=== PATIENT | female | born 1945 | race Caucasian/White ===

== ENCOUNTER 2018-07-04 09:19 | Day surgery (SDC) | payer OTHER, MEDICARE ==
--- NOTE | 2018-06-26 14:32 | RAD REPORT ---
EXAM DESCRIPTION: RAD - Chest Pa And Lat (2 Views) - 06/26/2018 2:25 pm CLINICAL HISTORY: preop Chest pain. COMPARISON: Chest Single View dated 04/11/2017; Chest Single View dated 04/10/2017; Chest Single View [place] 04/09/2017; Chest Single View dated 04/08/2017 FINDINGS: The lungs are clear. The heart is moderately enlarged in size. No displaced fractures. Nargis dging thoracic osteophytes. IMPRESSION: Moderate cardiomegaly.
[2018-06-26 14:37] LABS: Absolute Lymphocytes (CBC) 2.1 K/uL (0.7-4.9); Absolute Monocytes 0.9 K/uL (0.1-1.3); Absolute Neutrophil 10.5 K/uL (1.8-8.0); Basophils % 0.6 % (0-1.3); Eosinophils % 0.8 % (0-4.4); Hematocrit 49.2 % (36.0-45.0); Lymphocytes % 15.3 % (15.3-44.8); MPV 9.8 fL (7.6-11.3); Monocytes % 6.3 % (3.3-12.3); RBC Red Blood Cell Count 5.43 M/uL (3.86-4.86)
[2018-06-26 14:45] LABS: Potassium 3.8 mmol/L (3.5-5.1)
--- NOTE | 2018-06-26 14:57 | EKG ---
Test Date: 2018-06-26 Test Time: 13:54:04 [employer] Operator: DAGO MEASUREMENT RESULTS: Intervals: Rate: 102 IL: 174 QRSD: 98 QT: 382 QTc: 497 [place]: P: 57 [place]: 174 QRS: 78 T: 81 INTERPRETIVE STATEMENTS: Sinus tachycardia Possible Left atrial enlargement Borderline ECG Compared to ECG 10/05/1998 09:50:00 Sinus rhythm no longer present Electronically Signed On 06-26-18 14:56:37 CDT by Roshan Ha
--- OUTSIDE RECORDS SUMMARY | 2018-07-04 09:31 | XMS REPORT | Continuity of Care Document ---
:1945 Author Organization Interface Problems Problem Status Onset Classification Date Comments Source Date Reported AUTOPED Active 01/15/[address] HEAD LACERATION Active 01/15/[address] Diabetes Resolved Problem 01/19/2016 [facility] Hypertension Resolved Problem 01/19/2016 [facility] UNSPECIFIED OPEN Active [facility] WOUND OF OTHER Medical PART OF [place] Medications Medication Details Route Status Patient Ordering Order Source Instructions Provider Date ibuprofen 800 mg 800 mg=1 tab, Active 01/15[facility] [place] oral tablet PO, TID, PRN 2016 Medical Pain 1-3/Temp > Center 100.4 F, not to exceed 3200 mg/day with food or milk, X 7 day, # 21 tab, 0 Refill(s) tramadol 50 mg=1 tab, Active 01/15[facility] [place] hydrochloride 50 MG PO, Q4H, PRN 2016 Medical Oral Tablet Pain Score 1-5, Center not to exceed 400 mg/day, X 5 day, # 30 tab, 0 Refill(s) Docusate Sodium 100 100 mg=1 cap, Active 01/15[facility] [place] MG Oral Capsule PO, BID, PRN as 2016 Medical needed for Center constipation, with plenty of water, # 20 cap, 0 Refill(s) acetaminophen 500 1,000 mg=2 tab, Active 01/15[facility] [place] mg oral tablet PO, Q6Hnow, PRN 2016 Medical Pain 1-3/Temp > Center 100.4 F, not to exceed 4000 mg/day, X 7 day, # 56 tab, 0 Refill(s) Wellbutrin 100 mg, 1 tab, Inactive 01/15[facility] [place] Route: PO, Drug 2016 Medical form: TAB, BID, Center Dosing Weight 84.091, kg, Start date: 01/16/16 9:00:00 [employer], Duration: 30 day, Stop date: 02/14/16 17:00:00 CSTNotes: (Same As: Wellbutrin) POLYETHYLENE GLYCOL 17 gm, 1 pkt, Inactive [place] 3350 Route: PO, Drug 2015 Medical form: PWDR, Center Daily, Dosing Weight 84.091, kg, Start date: 01/16/16 9:00:00 [employer], Duration: 30 day, Stop date: 02/14/16 9:00:00 CSTNotes: Dissolve in 8 oz of water or juice. (Same as: Miralax) Docusate 100 mg, 1 cap, Inactive [place] Route: PO, Drug 2015 Medical form: CAP, BID, Center Dosing Weight 84.091, kg, Start date: 01/16/16 9:00:00 [employer], Duration: 30 day, Stop date: 02/14/16 17:00:00 CSTNotes: (Same as: Colace) (Do Not Crush) celecoxib 200 mg, 1 cap, No Longer [place] Route: PO, Drug Active 2015 Medical form: CAP, Center A16Rdnt, Dosing Weight 84.091, kg, Start date: 01/15/16 20:00:00 [employer], Duration: 30 day, Stop date: 02/14/16 8:00:00 CSTNotes: NSAID. Please check indication. Not for seizure. (Same As: CeleBREX) Acetaminophen 1,000 mg, 2 No Longer [place] tab, Route: PO, Active 2015 Medical Drug form: TAB, Center Q6Hnow, Dosing Weight 84.091, kg, Start date: 01/15/16 20:00:00 [employer], Duration: 30 day, Stop date: 02/14/16 14:00:00 CSTNotes: Max acetaminophen 4000 mg/day (4 gm/day). (Same as: Tylenol Extra Strength) gabapentin 300 mg, 1 cap, No Longer [place] Route: PO, Drug Active 2015 Medical form: CAP, Center Q8Hnow, Dosing Weight 84.091, kg, Start date: 01/15/16 20:00:00 [employer], Duration: 30 day, Stop date: 02/14/16 12:00:00 CSTNotes: (Same as: Neurontin) tramadol 50 mg, 1 tab, No Longer [place] hydrochloride 50 MG Route: PO, Drug Active 2015 Medical Oral Tablet form: TAB, Q4H, Center Dosing Weight 84.091, kg, PRN Pain Score 1-3, Start date: 01/15/16 19:17:00 [employer], Duration: 30 day, Stop date: 02/14/16 19:16:00 CSTNotes: Not to exceed 400mg/day. (Same As: Ultram) Metformin 1,000 mg, PO, Active [place] BID, 0 2015 Medical Refill(s) Center Hydrochlorothiazide 1 tab, PO, Active [place] 12.5 MG / Daily, 0 2015 Medical Lisinopril 20 MG Refill(s) Center Oral Tablet gabapentin 300 MG 600 mg=2 cap, Active [place] Oral Capsule PO, Daily, At 2016 Medical HS, 0 Refill(s) Center Bupropion 100 mg=1 tab, Active [place] Hydrochloride 100 PO, BID, 0 2015 Medical MG Oral Tablet Refill(s) Center [Wellbutrin] Ondansetron 4 mg, 2 mL, Inactive [place] Route: IV2015 Medical Drug form: INJ, Center ONCE, Dosing Weight 81.818, kg, PRN Nausea & Vomiting, Start date: 01/15/16 14:45:00 CSTNotes: (Same as: Zofran) MEDICATION WASTE Product Size: 4 mg Product Wasted: ___ mg Naloxone 0.4 mg, 1 mL, Inactive [place] Route: IV2015 Medical Drug form: INJ, Center Q2MIN, Dosing Weight 81.818, kg, PRN Narcotic Reversal, Start date: 01/15/16 14:45:00 [employer], Duration: 8 doses or times, Stop date: 01/16/16 0:00:00 CSTNotes: Same as Narcan Flumazenil 0.2 mg, 2 mL, Inactive [place] Route: IV2015 Medical Drug form: INJ, Center PRN, Dosing Weight 81.818, kg, PRN Benzodiazepine Reversal, Initial dose, Start date: 01/15/16 14:45:00 [employer], Stop date: 01/16/16 0:00:00 CSTNotes: (Same as: Romazicon) Hydromorphone 0.5 mg, 0.25 Inactive [place] mL, Route: IVP, 2015 Medical Drug form: INJ, Center Q5Min, Dosing Weight 81.818, kg, PRN Pain Score 7-10, Start date: 01/15/16 14:45:00 [employer], Duration: 4 doses or times, Stop date: 01/16/16 0:00:00 CSTNotes: Same as Dilaudid Hydralazine 10 mg, 0.5 mL, Inactive [place] Route: IVP, 2015 Medical Drug form: INJ, Center Q20Min, Dosing Weight 81.818, kg, PRN Elevated BP, Start date: 01/15/16 14:45:00 [employer], Duration: 2 doses or times, Stop date: 01/16/16 0:00:00 CSTNotes: (Same as: Apresoline) Push over 5 minutes Labetalol 10 mg, 2 mL, Inactive [place] Route: IVP, 2015 Medical Drug form: INJ, Center Q5Min, Dosing Weight 81.818, kg, PRN Elevated BP, Start date: 01/15/16 14:45:00 [employer], Duration: 5 doses or times, Stop date: 01/16/16 0:00:00 [employer] ceFAZolin (SCIP) Route: IVP, Inactive [place] ONCE, Dosing 2016 Medical Weight 81.818, Center kg, Start date: 01/15/16 12:40:00 [employer], Stop date: 01/15/16 12:40:00 [employer] Isolyte S PH-7.4 Route: IV, Inactive [place] (Bolus) IV Dosing Weight 2016 Medical 81.818, kg, Center ONCE, Start date: 01/15/16 11:17:00 [employer], Stop date: 01/15/16 11:17:00 [employer] iodixanol 140 mL, Route: Inactive [place] IVP, Drug Form: 2015 Medical SOLN, Dosing Center Weight 81.818, kg, ONCALL, STAT, Start date: 01/15/16 10:40:00 [employer], Duration: 1 doses or times, Dose=2.2ml/kg, Max [id number] -- "To be infused by Radiology Staff ONLY" Morphine 4 mg, Route: Inactive [place] IVP, ONCE, 2016 Medical Dosing Weight Center 81.818, kg, Priority: STAT, Start date: 01/15/16 9:31:00 [employer], Stop date: 01/15/16 9:31:00 [employer] Saline Flush 0.9% 10 mL, Route: No Longer [facility], Drug Active 2015 Medical Form: INJ, Center Dosing Weight 81.818, kg, PRN, PRN Line Flush, Start date: 01/15/16 9:25:00 [employer], Duration: 30 day, Stop date: 02/14/16 9:24:00 CSTNotes: (Same as: BD Posiflush) Allergies, Adverse Reactions, Alerts Substance Category Reaction Severity Reaction Status Date Comments Source type Reported Immunizations Immunization Date Given Site Status Last Updated Comments Source Results Order Name Results Value Reference Date Interpretation Comments Source Range DRUG SCREEN U Phencyc Scr Negative Negative 01/15 [facility] *NA* Center (01/16/16 6:06 AM) DRUG SCREEN UDS Note See Note 01/15 [facility] (01/16/16 6:06 AM) Center DRUG SCREEN U Opiate Scr Positive Negative 01/15 [facility] *ABN* Center (01/16/16 6:06 AM) DRUG SCREEN U Cannab Scr Negative Negative 01/15 [facility] *NA* Center (01/16/16 6:06 AM) DRUG SCREEN U Benzodia Negative Negative 01/15 [facility] Scr [facility] *NA* Center (01/16/16 6:06 AM) DRUG SCREEN U Cocaine Scr Negative Negative 01/15 [facility] *NA* Center (01/16/16 6:06 AM) DRUG SCREEN U Amph Scr Negative Negative 01/15 [facility] *NA* Center (01/16/16 6:06 AM) DRUG SCREEN U Lizzy Scr Negative Negative 01/15 Medical *NA* Center (01/16/16 6:06 AM) URINE AND UA Color Light Yellow 1 Yellow 01/15 Result [facility] STOOL Comment: [facility] (01/16/16 6:06 AM) specimen Center received greater than 2 days old; interpret results with caution. URINE AND UA <=1.0 0.1 - 1.0 01/15 [facility] STOOL Urobilinogen mg/dL /2015 Medical Center URINE AND UA RBC 1 /HPF 0 - 2 01/15 [facility] URINE AND UA Mucus Few /LPF None Seen 01/15 [place] STOOL /LPF /2015 [facility] URINE AND UA Turbidity Clear Clear 01/15 [facility] (01/16/16 6:06 AM) [place] URINE AND UA Spec Grav 1.014 <=1.030 01/[address] URINE AND UA Bili Negative Negative 01/15 [facility] *NA* [place] (01/16/16 6:06 AM) URINE AND UA Ketones Negative Negative 01/15 [facility] mg/dL mg/dL [facility] URINE AND UA pH 6.0 5.0 - 8.0 01/15 [facility]2015 [facility] URINE AND UA Protein Negative Negative 01/15 [facility] mg/dL mg/dL [facility] URINE AND UA Glucose Negative Negative 01/15 [facility] mg/dL mg/dL [facility] URINE AND UA Leuk Est Moderate Negative 01/15 [facility] *ABN* [place] (01/16/16 6:06 AM) URINE AND UA Sq Epi Few /LPF Few /LPF 01/15 [facility] [address] [place] [address] URINE AND UA WBC 6 /HPF 0 - 5 01/15 [facility]2015 [facility] URINE AND UA Blood Negative Negative 01/15 [facility] (01/16/16 6:06 AM) [place] URINE AND UA Nitrite Positive Negative 01/15 [facility] [place] (01/16/16 6:06 AM) CHEM PANEL Phosphorus 3.3 mg/dL 2.5 - 4.5 01/15 [facility]2015 [facility] CHEM PANEL Calcium Lvl 7.4 mg/dL 8.5 - 10.5 01/[address] CHEM PANEL eGFR 89 01/15 Result Comment: The eGFR is calculated using the CKD-EPI formula. In most young, healthy individuals the eGFR will be >90 mL/ min/1.73m2. The eGFR declines with age. An eGFR of 60-89 may be normal in [facility] mL/min/1.7 /2015 some populations, particularly the elderly, for whom the CKD-EPI formula has not been extensively validated. Use of the eGFR is not recommended in the following populations: Medical 3m2 Center Individuals with unstable creatinine concentrations, including patients and those with serious co-morbid conditions. Patients with extremes in muscle mass or diet. The data above are obtained from the National Kidney Disease Education Program (NKDEP) which additionally recommends that when the eGFR is used in patients with extremes of body mass index for purposes of drug dosing, the eGFR should be multiplied by the estimated BMI. CHEM PANEL CO2 29 meq/L 24 - 32 01/15 [facility] CHEM PANEL AGAP 10.6 meq/L 10.0 - 01/15 [place] 20.0 [facility] CHEM PANEL Glucose Lvl 108 mg/dL 70 - 99 01/15 [facility] CHEM PANEL Creatinine 0.68 mg/dL 0.50 - 01/15 [facility] Lvl 1.40 [facility] CHEM PANEL BUN 15 mg/dL 7 - 22 01/15 [facility] CHEM PANEL Chloride Lvl 101 meq/L 95 - 109 01/15 [facility] CHEM PANEL Potassium Lvl 3.6 meq/L 3.5 - 5.1 01/15 [facility] CHEM PANEL Sodium Lvl 137 meq/L 135 - 145 01/15 [facility] CHEM PANEL Magnesium Lvl 1.9 mg/dL 1.8 - 2.4 01/15 [facility] HEMATOLOGY Platelet 214 K/CMM 133 - 450 01/15 [facility] HEMATOLOGY MPV 9.4 fL 7.4 - 10.4 01/15 [facility] HEMATOLOGY RDW 14.8 % 11.5 - 01/15 14.5 [facility] HEMATOLOGY Hct 36.1 % 36.0 - 01/15 [place] 48.0 [facility] HEMATOLOGY MCV 88.3 fL 80.0 - 01/15 98.0 [facility] HEMATOLOGY MCH 29.1 pg 27.0 - 01/15 [place] 31.0 [facility] HEMATOLOGY MCHC 32.9 g/dL 32.0 - 01/15 [place] 36.0 [facility] HEMATOLOGY Hgb 11.9 g/dL 12.0 - 01/15 [place] 16.0 [facility] HEMATOLOGY RBC 4.08 M/CMM 4.20 - 01/15 [place] 5.40 [facility] HEMATOLOGY WBC 11.4 K/CMM 3.7 - 10.4 01/15 [facility] HEMATOLOGY Basophils 0.2 % 0.0 - 1.0 01/15 2015 [facility] HEMATOLOGY Eosinophils 1.2 % 0.0 - 4.0 01/[address] HEMATOLOGY Monocytes # 0.5 K/CMM 0.0 - 0.8 01/[address] HEMATOLOGY Lymphocytes # 0.9 K/CMM 1.0 - 5.5 01/15 [facility]2015 [facility] HEMATOLOGY Segs-Bands # 9.7 K/CMM 1.5 - 8.1 01/[address] HEMATOLOGY Eosinophils # 0.1 K/CMM 0.0 - 0.5 01/15 [facility]2015 [facility] HEMATOLOGY Monocytes 4.8 % 2.0 - 12.0 01/[address] HEMATOLOGY Lymphocytes 8.2 % 20.0 - 01/15 [facility] 40.0 [facility] HEMATOLOGY Segs 85.6 % 45.0 - 01/15 [facility] 75.0 [facility] PARATHYROID Ca Ion WB 0.94 1.05 - 01/15 [facility] PROFILE mMol/L 1. [facility] PARATHYROID Ca Norm WB 0.92 1. - 01/15 [facility] PROFILE mMol/L 1. [facility] Clavicle DX Clavicle DX EXAM: XR RIGHT SHOULDER 3 VIEWS 01/14 - - Medical EXAM: XR RIGHT CLAVICLE 2 VIEWS This report was dictated by a [employer]ard Reporter/Fellow. I have personally reviewed the images as Center well as the Resident's interpretation and agree with the findings. Read by: Trina Vivar MD Resident: Trina Vivar MD Dictated Date/time: 01/15/16 20:45 DATE: 01/15/2016 12:12 PM [employer] Electronically Signed by: Padmaja Chávez MD 01/15/16 20:59 FINAL REPORT INDICATION: Pain Post Trauma COMPARISON: None available TECHNIQUE: AP views in internal and external rotation, and an axillary view of the right shoulder; 2 AP views of the right clavicle in cranial and caudal angulation are provided. FINDINGS: No acute fracture or malalignment is identified. Degenerative changes are present in the glenohumeral joint with marginal sclerosis and osteophyte formation of the glenoid rim accompanied by joint narrowing and subchondral cyst formation within right proximal humeral head. There is advanced degenerative change at the acromioclavicular joint with severe joint space narrowing associated with a near bone on bone appearance as well as marginal osteophyte formation No soft tissue abnormality is identified. IMPRESSION: 1. No acute abnormality of the right shoulder or right clavicle. 2. Advanced osteoarthrosis of right shoulder girdle. Shoulder Shoulder EXAM: XR RIGHT SHOULDER 3 VIEWS 01/14 - [facility] series DX series - Medical EXAM: XR RIGHT CLAVICLE 2 VIEWS This report was dictated by a [employer] Reporter/Fellow. I have personally reviewed the images as Center well as the Resident's interpretation and agree with the findings. Read by: Trina Vivar MD Resident: Trina Vivar MD Dictated Date/time: 01/15/16 20:45 DATE: 01/15/2016 12:12 PM [employer] Electronically Signed by: Padmaja Chávez MD 01/15/16 20:59 FINAL REPORT INDICATION: Pain Post Trauma COMPARISON: None available TECHNIQUE: AP views in internal and external rotation, and an axillary view of the right shoulder; 2 AP views of the right clavicle in cranial and caudal angulation are provided. FINDINGS: No acute fracture or malalignment is identified. Degenerative changes are present in the glenohumeral joint with marginal sclerosis and osteophyte formation of the glenoid rim accompanied by joint narrowing and subchondral cyst formation within right proximal humeral head. There is advanced degenerative change at the acromioclavicular joint with severe joint space narrowing associated with a near bone on bone appearance as well as marginal osteophyte formation No soft tissue abnormality is identified. IMPRESSION: 1. No acute abnormality of the right shoulder or right clavicle. 2. Advanced osteoarthrosis of right shoulder girdle. CHEM PANEL Lactic Acid 2.0 mMol/L 0.5 - 2.2 01/14 [facility] Lvl /2015 [facility] BLOOD BANK ABO/Rh A POS 01/14 [facility] RESULTS /2015 [facility] BLOOD BANK Antibody Scrn Negative 01/14 [facility] RESULTS /2015 Medical (01/15/16 9:33 AM) Center CHEM PANEL Lactic Acid 2.4 mMol/L 0.5 - 2.2 01/14 [facility] CHEM PANEL eGFR 42 01/14 Result Comment: The eGFR is calculated using the CKD-EPI formula. In most young, healthy individuals the eGFR will be >90 mL/ min/1.73m2. The eGFR declines with age. An eGFR of 60-89 may be normal in [facility] mL/min/1.7 some populations, particularly the elderly, for whom the CKD-EPI formula has not been extensively validated. Use of the eGFR is not recommended in the following populations: [address] Individuals with unstable creatinine concentrations, including patients and those with serious co-morbid conditions. Patients with extremes in muscle mass or diet. The data above are obtained from the National Kidney Disease Education Program (NKDEP) which additionally recommends that when the eGFR is used in patients with extremes of body mass index for purposes of drug dosing, the eGFR should be multiplied by the estimated BMI. CHEM PANEL Sodium Lvl 139 meq/L 135 - 145 01/14 [facility] [address] [place] [address] CHEM PANEL Creatinine 0.99 mg/dL 0.50 - 01/14 [facility] Lvl 1.40 [facility] CHEM PANEL CO2 31 meq/L 24 - 32 01/[address] CHEM PANEL Potassium Lvl 4.0 meq/L 3.5 - 5.1 01/[address] CHEM PANEL Glucose Lvl 135 mg/dL 70 - 99 01/[address] CHEM PANEL BUN 18 mg/dL 7 - 22 01/[address] CHEM PANEL Calcium Lvl 8.4 mg/dL 8.5 - 10.5 01/[address] CHEM PANEL Chloride Lvl 99 meq/L 95 - 109 01/[address] CHEM PANEL AGAP 13.0 meq/L 10.0 - 01/14 [facility] 20.0 [facility] ENDOCRINOLO S Preg Negative Negative 01/14 [facility] (01/15/16 9:26 AM) [place] HEMATOLOGY Eosinophils 1.1 % 0.0 - 4.0 01/[address] HEMATOLOGY Basophils 0.6 % 0.0 - 1.0 01/[address] HEMATOLOGY Segs-Bands # 7.3 K/CMM 1.5 - 8.1 01/[address] HEMATOLOGY Monocytes # 0.7 K/CMM 0.0 - 0.8 01/14 [facility] HEMATOLOGY Lymphocytes # 2.2 K/CMM 1.0 - 5.5 01/14 [facility] HEMATOLOGY Monocytes 6.5 % 2.0 - 12.0 01/14 [facility] HEMATOLOGY Lymphocytes 21.2 % 20.0 - 01/14 [place] 40.0 [facility] HEMATOLOGY Basophils # 0.1 K/CMM 0.0 - 0.2 01/14 [facility] HEMATOLOGY Eosinophils # 0.1 K/CMM 0.0 - 0.5 01/14 [facility] HEMATOLOGY Segs 70.6 % 45.0 - 01/14 [place] 75.0 /2015 [facility] HEMATOLOGY Platelet 252 K/CMM 133 - 450 01/14 [facility] HEMATOLOGY MCV 87.0 fL 80.0 - 01/14 98.0 [facility] HEMATOLOGY MCH 29.5 pg 27.0 - 01/14 31.0 [facility] HEMATOLOGY Hgb 15.6 g/dL 12.0 - 01/14 16.0 [facility] HEMATOLOGY MCHC 33.9 g/dL 32.0 - 01/14 36.0 [facility] HEMATOLOGY RDW 15.3 % 11.5 - 01/14 14.5 [facility] HEMATOLOGY MPV 9.7 fL 7.4 - 10.4 01/14 [facility] HEMATOLOGY RBC 5.28 M/CMM 4.20 - 01/14 5.40 /2015 [facility] HEMATOLOGY Hct 45.9 % 36.0 - 01/14 48.0 [facility] HEMATOLOGY WBC 10.4 K/CMM 3.7 - 10.4 01/14 [facility] HEMATOLOGY Estimated % 1.4 % 0.0 - 7.5 01/14 [facility] Lysis [facility] HEMATOLOGY ACT (TEG) 97 s 86 - 118 01/14 [facility] HEMATOLOGY [place] 0.3 min 01/14 [facility] HEMATOLOGY R-time Rapid 0.5 min 0.4 - 0.7 01/14 [facility] HEMATOLOGY K-time Rapid 1.1 min 0.6 - 2.3 01/14 [facility] HEMATOLOGY Angle Rapid 76 degrees 64 - 80 01/14 [facility] HEMATOLOGY Max Amplitude 69 mm 52 - 71 01/14 [facility] Rapid /2015 [facility] HEMATOLOGY G-value Rapid 11.2 K 5.0 - 11.6 01/14 [facility] d/sc /2015 [facility] TOXICOLOGY Etoh (%) <0.003 % 01/14 [facility] TOXICOLOGY Ethanol Lvl <3.0 mg/dL 01/14 [facility] Chest/Abdom Chest/Abdomen EXAM: CT CHEST WITH CONTRAST 01/14 - [facility] en/Pelvis w /Pelvis w IV - [facility] IV contrast contrast CT EXAM: CT ABDOMEN AND PELVIS WITH CONTRAST This report was dictated by a Hansard Reporter/Fellow. I have personally reviewed the images as Center CT well as the Resident's interpretation and agree with the findings. Read by: Juan Carlos Carroll MD Resident: Juan Carlos Carroll MD Dictated Date/time: 01/15/16 11:25 DATE: 01/15/2016 1021 hours Electronically Signed by: Herb Tomas MD 01/15/16 14:05 FINAL REPORT INDICATION: Blunt trauma COMPARISON: None. TECHNIQUE: Volumetric CT acquisition of the chest, abdomen and pelvis following intravenous administration of contrast. Delayed imaging was then performed through the abdomen and pelvis, using a radiati on reduction technique. Axial, coronal and sagittal reformats, and MIP images of the aorta. IV contrast: 150 cc of Visipaque 320 Oral contrast: None. DLP: 1869 mGy-cm FINDINGS: Lines and Tubes: None. Lower Neck: Visible portions unremarkable. Thoracic Aorta and Mediastinum: No mediastinal hematoma or thoracic aortic injury. Lungs and Pleura: Minimal subsegmental atelectasis in the right lung bases. Otherwise the lungs are clear. No contusions. No pleural fluid or pneumothorax. Hepatobiliary: Very small hypodense lesion in the left liver lobe that is too small to characterize. No acute injury. Gallbladder: Fundal gallbladder wall thickening with intraluminal deposition of fat concerning for fundal adenomyomatosis or fat containing gallstone recommend further evaluation with right upper quadrant ultrasound. No acute injury. Spleen: Normal. Pancreas: Tiny calcifications with pancreatic atrophy. Adrenals: Normal. Kidneys: The kidneys are atrophic bilaterally with multiple cyst in the left kidney too small to characterize. Exophytic cyst is seen in the midportion of the left kidney measuring 1.9 x 1.8 cm in the a xial plane (series 9, image 34) and 2 cm along the longitudinal axis of the coronal plane (series 10 A, image 67) most likely represents a benign cyst. Ureters and Bladder: No injury. Reproductive Organs: No injury. Gastrointestinal Tract: Diverticulosis without diverticulitis. Small and large bowel loops are nondilated. No evidence of acute injury. Peritoneum and Retroperitoneum: No fluid collections or free air. Abdominal/Pelvic Vasculature: Scattered vascular calcification seen in the abdominal aorta and the common iliac arteries. Lymphadenopathy: None. Spine/Bones: No acute abnormality of the spine. No other bony injury. Multilevel degenerative disc and joint disease seen in the thoracic and lumbar spine. Osteophytes seen throughout the thoracolumbar spine with large anterior osteophytes seen in the lower lumbar spine. Alignment is within normal limits. Soft Tissues: Unremarkable. IMPRESSION: 1. No acute thoracic, abdominal, or pelvic injury. 2. Fundal gallbladder wall thickening with fat deposition intraluminally concerning for gallstone or fundal adenomyomatosis. Recommend nonemergent ultrasound for further evaluation. 3. Exophytic cyst in the midportion the left kidney most likely benign. 4. Diverticulosis without diverticulitis. 5. Mild degenerative changes in thoracolumbar spine without acute fracture. RECOMMENDATIONS: None. Facial bone Facial bone EXAM: CT FACIAL BONES WITHOUT CONTRAST 01/14 - [facility] wo contrast wo contrast /2015 - Medical CT CT This report was dictated by a [employer] Reporter/Fellow. I have personally reviewed the images as Center well as the Resident's interpretation and agree with the findings. DATE: 01/15/2016 at 1015 hours Read by: Juan Carlos Carroll MD Resident: Juan Carlos Carroll MD Dictated Date/time: 01/15/16 11:03 Electronically Signed by: Herb Tomas MD 01/15/16 14:00 FINAL REPORT INDICATION: Pain, Trauma COMPARISON: None TECHNIQUE: Volumetric CT acquisition of the facial bones without contrast. Axial, coronal and sagittal reconstructions. IV contrast: None. DLP: 592.90 mGy-cm FINDINGS: Bones: No fracture or other acute bony abnormality is identified. The mandible is intact, and the temporomandibular joints are well-aligned. The paranasal sinuses and mastoid air cells are clear. Soft tissues: Superficial laceration with soft tissue swelling and subcutaneous emphysema seen in the right frontoparietal region. No abnormality of the globes is seen. There is no intraconal hematoma. No radiopaque foreign body is identified IMPRESSION: 1. Superficial laceration with soft tissue swelling and subcutaneous emphysema in the right frontoparietal region. 2. No acute fracture is identified. Spine Spine EXAM: CT CERVICAL SPINE WITHOUT CONTRAST 01/14 [facility] cervical wo cervical wo /2015 - Medical contrast CT contrast CT This report was dictated by a [employer] Reporter/Fellow. I have personally reviewed the images as Center well as the Resident's interpretation and agree with the findings. DATE: 01/15/2016 1015 hours Read by: Juan Carlos Carroll MD Resident: Juan Carlos Carroll MD Dictated Date/time: 01/15/16 11:11 Electronically Signed by: Herb Tomas MD 01/15/16 14:02 FINAL REPORT INDICATION: Pain Post Trauma COMPARISON: None TECHNIQUE: Volumetric CT acquisition of the cervical spine without contrast. Axial, sagittal and coronal reconstructions. IV contrast: None. DLP: 541.54 mGy-cm FINDINGS: The spine is imaged from the skull base to the level of T4. No acute fracture or malalignment is identified. No soft tissue abnormality is identified. Vertebral heights are maintained. Severe spondylosis with large bridging osteophytes in the lower cervical spine. Moderate degenerative disc disease and degenerative joint disease at all cervical levels. Posterior osteophyte complex at C5-C6 without spinal canal stenosis. IMPRESSION: 1. No acute fracture or malalignment identified in the cervical spine. 2. Moderate multilevel degenerative disc and joint disease in the cervical spine. 3. Severe spondylosis of the lower cervical spine. Brain wo Brain wo EXAM: CT BRAIN WITHOUT CONTRAST 01/14 [facility] contrast CT contrast CT /2015 - Medical This report was dictated by a [employer] Reporter/Fellow. I have personally reviewed the images as Center well as the Resident's interpretation and agree with the findings. DATE: 01/15/2016 10:15 AM [employer] Read by: Otilio Jacome MD Resident: Otilio Jacome MD Dictated Date/time: 01/15/16 11:07 Electronically Signed by: Osmani Donato MD 01/18/16 08:52 FINAL REPORT INDICATION: Status post autoped with uncontrolled scalp bleeding on arrival. COMPARISON: Contemporaneous CT facial bones TECHNIQUE: Routine axial CT images of the brain were obtained. No reformats. IV contrast: None. DLP: 1268.65 mGy-cm FINDINGS: Non-contrast images of the head demonstrate no edema, hemorrhage, mass lesion or other acute intracranial abnormality. The brain has normal attenuation and nunez-white matter distinction. The ventricles are normal. The basal cisterns and sulci are normal in size. There is no chronic abnormality. A large area of swelling with subcutaneous emphysema and packing material is seen overlying a laceration of the right frontotemporal region. No skull fracture is seen. The paranasal sinuses, orbits and mastoids are unremarkable. IMPRESSION: 1. No acute intracranial process. 2. Right frontotemporal scalp laceration with associated swelling and subcutaneous emphysema. Vital Signs Vital Sign Value Date Comments Source Temperature Oral (F) 98.9 F 01/16/2016 [facility] Heart Rate 81 01/16/2016 [facility] Systolic (mm Hg) 119 01/16/2016 [facility] Diastolic (mm Hg) 62 01/16/2016 [facility] Respitory Rate 18 01/16/2016 [facility] Systolic (mm Hg) 130 01/16/2016 [facility] Diastolic (mm Hg) 60 01/16/2016 [facility] Heart Rate 85 01/16/2016 [facility] Temperature Oral (F) 98.2 F 01/16/2016 [facility] Respitory Rate 16 01/16/2016 [facility] Systolic (mm Hg) 141 01/16/2016 [facility] Diastolic (mm Hg) 70 01/16/2016 [facility] Heart Rate 87 01/16/2016 [facility] Temperature Oral (F) 98 F 01/16/2016 [facility] Respitory Rate 16 01/16/2016 [facility] Weight 84.091 01/15/2016 [facility] BMI Calculated 29.04 01/15/2016 [facility] Height 170.18 cm 01/15/2016 [facility] Weight 81.818 01/15/2016 [facility] Encounters Location Location Encounter Encounter Reason Attending ADM DC Status Source Details Type Number For Provider Date Date Visit [facility] [id number] Jamal 01/14 01/15 MARA Lowe /2015 [facility] Procedures Procedure Code Date Perfomer Comments Source 

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
[2018-07-04] MEDS: ALBUTEROL 2.5 MG/3 ML NEB SOL NEB ONE (09:45)
[2018-07-04] MEDS ORDERED: NA CHLORIDE 0.9% 1,000 ML ONE ×2 (09:45→11:32)
[2018-07-04] MEDS ORDERED: NEOSTIGMINE 1 MG/ML -10 ML VIAL ONE (09:56)
[2018-07-04] MEDS ORDERED: ONDANSETRON 4 MG/2 ML VIAL ONE (09:56)
[2018-07-04] MEDS ORDERED: ROCURONIUM 50 MG/5 ML VIAL IV ONE (09:56)
[2018-07-04] MEDS ORDERED: MIDAZOLAM HCL 2 MG/2 ML INJ ONE (09:56)
[2018-07-04] MEDS ORDERED: PROPOFOL 200 MG/20 ML VIAL IV ONE (09:56)
[2018-07-04] MEDS ORDERED: ALBUTEROL 2.5 MG/3 ML NEB SOL ONE (09:56)
[2018-07-04] MEDS ORDERED: LIDOCAINE 2% MPF 5 ML VIAL ONE (09:57)
[2018-07-04] MEDS ORDERED: FENTANYL CITR 250 MCG/5 ML ONE (09:57)
[2018-07-04] MEDS ORDERED: GLYCOPYRROLATE 0.2 MG/ML SYR ONE (09:57)
[2018-07-04] MEDS: CEFAZOLIN/SWI 1gm 1 GM/10 ML SYR ONE ×3 (10:01→10:27)
[2018-07-04] MEDS ORDERED: ALBUTEROL INHALER 60 PUFF/8 GM IH ONE (10:48)
[2018-07-04] MEDS ORDERED: EPHEDRINE SULF 50 MG/ML VIAL ONE (10:54)
--- NOTE | 2018-07-04 11:19 | P.BOP ---
Preoperative diagnosis: incisional tender ventral hernia, obesity, Postoperative diagnosis: same plus intrabdominal adhesions Primary procedure: Open repair of incisional tender ventral hernia Secondary procedure: Lysis of adhesions Hand Cultivator: ROGERIO CARREON (EMPLOYEE WELFARE MANAGER) Specimen: hernia sac Findings: as above Anesthesia: General Complications: None Transferred to: Recovery Room Condition: Good
[2018-07-04] MEDS: HYDROMORPHONE HCL 1 MG/ML INJ ONE ×2 (11:53→11:59)
[2018-07-04] MEDS ORDERED: HYDROCODONE/APAP 7.5/325 MG TAB ONE (13:12)
--- NOTE | 2018-07-05 20:07 | DS ---
Date of Discharge: 07/04/2018 Diagnoses: Incisional tender ventral hernia, morbid obesity, and intraabdominal adhesions. Procedures: Open repair of an incarcerated tender ventral hernia and open lysis of adhesions. Disposition: Home. Activity: As tolerated. No heavy lifting. Followup: Follow up in my office in 1 week. Call for appointment [phone]. Keep the area dry for 4 8 hours, then may shower. Medications: See orders. ZEUS/MODL Voice ID: [id number] Report ID: [id number]
--- NOTE | 2018-07-05 20:07 | OP ---
Date of Procedure: 07/04/2018 Surgeon: Renzo Perez MD Ice Cutter: ELSA Metz. Preoperative Diagnoses: Incisional tender right upper quadrant ventral hernia, morbid obesity. Postoperative Diagnoses: Incisional tender right upper quadrant ventral hernia, morbid obesity, plus intraabdominal adhesions. Procedures: Open repair of incisional tender right upper quadrant ventral hernia and intraabdominal lysis of adhesions. Specimen: Hernia sac. Findings: The patient has a large hernia on the lateral aspect of a previous incision from an open c holecystectomy many years ago. The hernia is large enough to allow the bowel to come through, althou gh I do not see any obstruction at this time. Bowel was inspected, retracted back into the abdominal cavity. We did not see any injuries or any problem with the bowel at least grossly. This is the ca se of a 72-year-old patient who had an open cholecystectomy long time ago and then subsequent incisio nal hernia on the lateral side of the incision. The patient wants that repaired stating pain and dis comfort and likes to describe things are coming through. The benefits, alternatives, and risks of re pair of incisional ventral hernia with possible mesh fully explained to the patient, which include bu t are not limited to infection, bleeding, damage to adjacent structures, anesthesia complication, rec urrence, NV, and even . She also understands this may not relieve her symptoms. She might need more than one surgical intervention. She also was advised the importance of losing weight. No heav y lifting. Avoiding constipation. She understand also she might have to use an abdominal binder for the rest of the year. She signed the consent. The area of concern was marked by me and the patient in the holding room. Description Of Procedure: The patient was brought to the operating room, placed in supine position. Anesthesia was done without complication. Abdominal area was prepped and draped in a sterile fashio n. Incision was made over the area of the hernia. Incision was carried down to fascia. Immediately , we noticed to have a hernia sac present. Carefully, the hernia sac was opened. We noticed large b owel coming through this hernia, but it was carefully reduced into the abdominal cavity. There were extensive adhesions present that we had to remove with the [place] scissors slowly. That allowed me to bring the bowel back into the abdominal cavity without any injury or enterotomies. We took a signifi cant amount of time for the lysis of adhesions, but we were able to reduce that abdominal contents. Then, we noticed the fascia edges, and so we proceeded to approximate the fascia edges after debridem ent of the devitalized tissue with #2 nylon in a [id number] fashion interrupted multiple times. The area was irrigated. Then, the subcutaneous tissue closed with 3-0 chromic and then the skin was approximated. Sponge count and instrument counts were correct. The patient tolerated the procedure well. The patient was sent to Recovery in stable condition. ZEUS/DEENA Voice ID: [id number] Report ID: [id number]
== END 2018-07-04 13:30 | disposition home or self-care (01) ==
LOC: OR 09:19
PROVIDERS: ATTEND Surgery
PROC: 0WQF0ZZ Repair Abdominal Wall, Open Approach (ICD-10-PCS; principal; 2018-07-04 11:15)
DX: K43.2 Incisional hernia without obstruction or gangrene (principal); K66.0 Peritoneal adhesions (postprocedural) (postinfection); E66.01 Morbid (severe) obesity due to excess calories; E11.9 Type 2 diabetes mellitus without complications; I10 Essential (primary) hypertension; F41.9 Anxiety disorder, unspecified; Z79.84 Long term (current) use of oral hypoglycemic drugs; Z79.899 Other long term (current) drug therapy; F17.210 Nicotine dependence, cigarettes, uncomplicated
CPT/HCPCS: 49560; 93005; 85025; 80048; 36415; 82962 ×2; 88302; 71046; 94640; J2704; J2710; J3010; J1170; J0690; J7030 ×2; J2405; J2250